=== PATIENT | male | born 1965 | race Caucasian/White ===

== ENCOUNTER → 2021-02-02 | Outpatient (CLI) | payer OTHER ==
[~2021-02-02] MED LIST: CENTRUM SILVER1 EAC1 PO; COUMADIN 5 MG PO; COUMADIN PO; FLOMAX 0.4 MG0.4 MG PO; HYDROCHLOROTH12.5 MG PO; LIPITOR40 MG PO; LISINOPRIL40 MG PO; LOVENOX120 MG/0.8 INJ; LYRICA200 MG PO; PREDNISONE20 MG PO; PROSCAR5 MG PO; PROTONIX40 MG PO; PROZAC20 MG PO; ROBAXIN 750 MG750 MG PO; SINGULAIR10 MG PO; XYZAL5 MG PO; [UNRECOGNIZED DRUG - OTHER]
== END ==
LOC: HEART 5 10:12 → ECHO 02-12 10:00
DX: I35.9 Nonrheumatic aortic valve disorder, unspecified (principal)
CPT/HCPCS: 93306

== ENCOUNTER → 2021-02-16 | Outpatient (CLI) | payer OTHER | LOC: KOH-I 16:30 | DX: J32.4 Chronic pansinusitis (principal) | CPT/HCPCS: 70486 ==

== ENCOUNTER → 2021-03-27 | Day surgery (SDC) | payer OTHER ==
[2021-03-27 07:43] LABS: BUN/CREATININE RATIO 19 (0-10)
== END | disposition home or self-care (01) ==
LOC: OR 06:40
PROVIDERS: Otolaryngology
DX: J32.4 Chronic pansinusitis (principal); J33.8 Other polyp of sinus; J34.3 Hypertrophy of nasal turbinates; I11.9 Hypertensive heart disease without heart failure; F41.9 Anxiety disorder, unspecified; R00.0 Tachycardia, unspecified; I49.3 Ventricular premature depolarization; E78.5 Hyperlipidemia, unspecified; Z79.01 Long term (current) use of anticoagulants; Z95.2 Presence of prosthetic heart valve; M79.7 Fibromyalgia; F43.10 Post-traumatic stress disorder, unspecified; E11.9 Type 2 diabetes mellitus without complications
CPT/HCPCS: 36415; 80048; 85610; 85730; 93005; C1726; J0171; J0690; J2001; J2250; J2405; J2550; J2704; J2710; J3010; J7030; J7120

== ENCOUNTER → 2022-06-21 | Outpatient (CLI) | payer OTHER | LOC: EXRD 09:26 | DX: M54.50 Low back pain, unspecified (principal); M54.2 Cervicalgia; M43.22 Fusion of spine, cervical region; M47.812 Spondylosis without myelopathy or radiculopathy, cervical region; M47.816 Spondylosis without myelopathy or radiculopathy, lumbar region; M43.27 Fusion of spine, lumbosacral region; M48.061 Spinal stenosis, lumbar region without neurogenic claudication; M48.07 Spinal stenosis, lumbosacral region | CPT/HCPCS: 72050; 72110 ==